=== PATIENT | female | born 1980 | race Caucasian/White ===

== ENCOUNTER 2019-11-17 15:57 | Emergency (ER) | payer SELFPAY ==
[~2019-11-17] VITALS: Ht 157.5 cm; Wt 75.3 kg
[2019-11-17 16:00] VITALS: BP 138/67; Ht 157.5 cm; Wt 75.3 kg
== END 2019-11-17 18:45 | disposition home or self-care (01) ==
LOC: ED 15:57
DX: J06.9 Acute upper respiratory infection, unspecified (principal)
CPT/HCPCS: 87804